=== PATIENT | male | born 1990 | race Caucasian/White ===

== ENCOUNTER 2021-05-29 11:32 | Inpatient (IN) | payer MEDICAID, OTHER ==
[~2021-05-29] VITALS: Ht 182.9 cm; Wt 120.9 kg
[2021-05-29 14:59] LABS: BASOPHILS % (AUTO) 0.8 % (0.0-2.0); EOSINOPHILS % (AUTO) 0.5 % (1.0-6.0); HEMOGLOBIN 15.2 g/dL (13.5-17.5); LYMPHOCYTES # (AUTO) 1.7 K/uL (1.0-4.8); LYMPHOCYTES % (AUTO) 15.9 % (22.0-44.0); MEAN CORPUSCULAR HEMOGLOBIN 28.9 pg (26.0-34.0); MEAN CORPUSCULAR HGB CONC 33.7 G/dL (31.0-37.0); MEAN CORPUSCULAR VOLUME 86 fL (80-100); MONOCYTES # (AUTO) 0.6 K/uL (0.1-1.0); MONOCYTES % (AUTO) 5.6 % (2.0-9.0); NEUTROPHILS # (AUTO) 8.3 K/uL (1.8-7.7); NEUTROPHILS % (AUTO) 77.2 % (40.0-70.0); PLATELET COUNT (AUTO) 221 K/uL (150-450); RED BLOOD CELL COUNT(AUTO) 5.24 MIL/uL (4.50-5.90); RED CELL DISTRIBUTION WIDTH 15.3 % (11.5-14.5)
[2021-05-29 15:50] LABS: ANION GAP 12 mmol/L (8-16); CALCIUM, TOTAL 8.6 mg/dL (8.8-10.5); CARBON DIOXIDE 25 mmol/L (22-29); CHLORIDE 105 mmol/L (98-107); CREATININE 0.77 mg/dL (0.60-1.30); GLOMERULAR FILTR. RATE CALC > 60 mL/min (>60); GLUCOSE,RANDOM 104 mg/dL (70-110); POTASSIUM 3.6 mmol/L (3.5-5.1); SODIUM SERUM 142 mmol/L (136-145); UREA NITROGEN, BLOOD 8 mg/dL (7-18)
[2021-05-29 15:56] LABS: ALANINE AMINOTRANSFERASE 41 U/L (12-78); ALBUMIN 3.8 g/dL (3.4-5.0); ALKALINE PHOSPHATASE 74 U/L (46-116); ASPARTATE AMINOTRANSFERASE 22 U/L (15-37); BILIRUBIN,TOTAL 0.2 mg/dL (0.1-1.0); TOTAL PROTEIN, SERUM 7.4 g/dL (6.4-8.2)
[2021-05-29 17:20] LABS: COVID AG,FIA SOURCE NASOPHARYNGEAL
[2021-05-29 18:30] VITALS: BP 153/97
[2021-05-29] MEDS: LORazepam 2 MG TABLET PO PRN (19:12)
[2021-05-29] MEDS: HALOPERIDOL 5 MG TABLET PO PRN (19:12)
[2021-05-29] MEDS ORDERED: ACETAMINOPHEN 325 MG TABLET PO PRN (19:45)
[2021-05-29] MEDS ORDERED: LOPERAMIDE HCL 2 MG CAPSULE PO PRN (19:45)
[2021-05-29] MEDS ORDERED: DOCUSATE SODIUM 100 MG CAPSULE PO PRN (19:45)
[2021-05-29] MEDS ORDERED: MAG HYDROX/AL HYDROX/SIMETH ES 30 ML SUSPENSION UDCUP PO PRN (19:45)
[2021-05-29] MEDS ORDERED: GuaiFENesin/D-METHORPHAN [SUGAR-FREE] 200-20MG/10 ML SYRUP UDCUP PO PRN (19:45)
[2021-05-29] MEDS ORDERED: CloNIDine HCL 0.1 MG TABLET PO PRN (19:45)
[2021-05-29] MEDS ORDERED: ALBUTEROL SULFATE HFA 90 MCG/PUFF 8 GM INHALER IH PRN (19:45)
[2021-05-29] MEDS ORDERED: NICOTINE 14 MG/24 HOUR PATCH TD PRN (19:45)
[2021-05-29] MEDS ORDERED: ONDANSETRON HCL 4 MG TABLET PO PRN (19:45)
[2021-05-29] MEDS ORDERED: MAGNESIUM HYDROXIDE SUSPENSION 30 ML UDCUP PO PRN (19:45)
[2021-05-29] MEDS ORDERED: PETROLATUM,WHITE 28 GM JELLY TP PRN (19:45)
[2021-05-30 09:42] LABS: BASOPHILS % (AUTO) 0.7 % (0.0-2.0); EOSINOPHILS % (AUTO) 1.6 % (1.0-6.0); HEMATOCRIT 46.6 % (41-53); HEMOGLOBIN 15.6 g/dL (13.5-17.5); LYMPHOCYTES % (AUTO) 20.3 % (22.0-44.0); MEAN CORPUSCULAR HEMOGLOBIN 29.3 pg (26.0-34.0); MEAN CORPUSCULAR HGB CONC 33.5 G/dL (31.0-37.0); MEAN CORPUSCULAR VOLUME 87 fL (80-100); MONOCYTES # (AUTO) 0.4 K/uL (0.1-1.0); MONOCYTES % (AUTO) 4.2 % (2.0-9.0); NEUTROPHILS # (AUTO) 7.1 K/uL (1.8-7.7); NEUTROPHILS % (AUTO) 73.2 % (40.0-70.0); PLATELET COUNT (AUTO) 229 K/uL (150-450); RED BLOOD CELL COUNT(AUTO) 5.33 MIL/uL (4.50-5.90); RED CELL DISTRIBUTION WIDTH 15.5 % (11.5-14.5)
[2021-05-30 09:43] LABS: HEMOGLOBIN A1C 5.4 % (3.8-5.6)
[2021-05-30 09:52] LABS: ALANINE AMINOTRANSFERASE 51 U/L (12-78); ALBUMIN 3.7 g/dL (3.4-5.0); ALKALINE PHOSPHATASE 77 U/L (46-116); ANION GAP 9 mmol/L (8-16); ASPARTATE AMINOTRANSFERASE 30 U/L (15-37); BILIRUBIN,TOTAL 0.4 mg/dL (0.1-1.0); CALCIUM, TOTAL 8.7 mg/dL (8.8-10.5); CARBON DIOXIDE 26 mmol/L (22-29); CHLORIDE 106 mmol/L (98-107); CREATININE 0.93 mg/dL (0.60-1.30); GLOMERULAR FILTR. RATE CALC > 60 mL/min (>60); GLUCOSE,RANDOM 124 mg/dL (70-110); POTASSIUM 3.6 mmol/L (3.5-5.1); SODIUM SERUM 141 mmol/L (136-145); TOTAL PROTEIN, SERUM 7.6 g/dL (6.4-8.2); UREA NITROGEN, BLOOD 11 mg/dL (7-18)
[2021-05-30 09:58] LABS: CHOL/HDL RATIO 3.3 (4.2-7.3); FREE T4 (FREE THYROXINE) 1.02 ng/dL (0.76-1.46); THYROID STIMULATING HORMONE 2.45 uIU/mL (0.36-3.74)
[2021-05-30] MEDS: OLANZapine 5 MG TABLET PO SCH ×2 (10:35→16:39)
[2021-05-30 16:00] VITALS: BP 129/74
[2021-05-30] MEDS: HALOPERIDOL 5 MG TABLET PO PRN (16:39)
[2021-05-31] MEDS: LORazepam 2 MG TABLET PO PRN ×3 (03:15→22:13)
[2021-05-31] MEDS: HALOPERIDOL 5 MG TABLET PO PRN (03:15)
[2021-05-31] MEDS: OLANZapine 5 MG TABLET PO SCH ×3 (09:00→16:17)
[2021-05-31] MEDS: IBUPROFEN 400 MG TABLET PO PRN (14:33)
[2021-05-31 16:54] VITALS: BP 152/90
[2021-05-31] MEDS: ZOLPIDEM TARTRATE 10 MG TABLET PO PRN (20:24)
[2021-06-01 08:00] VITALS: BP 156/98
[2021-06-01] MEDS: OLANZapine 5 MG TABLET PO SCH ×2 (08:45→16:02)
[2021-06-01] MEDS: IBUPROFEN 400 MG TABLET PO PRN (08:46)
[2021-06-01] MEDS: LORazepam 2 MG TABLET PO PRN ×2 (16:02→21:06)
[2021-06-01 16:48] VITALS: BP 146/89
[2021-06-01] MEDS: ZOLPIDEM TARTRATE 10 MG TABLET PO PRN (20:06)
[2021-06-02 08:38] VITALS: BP 153/96
[2021-06-02] MEDS: LORazepam 2 MG TABLET PO PRN (08:55)
[2021-06-02] MEDS: OLANZapine 5 MG TABLET PO SCH ×2 (08:56→16:17)
[2021-06-02] MEDS: IBUPROFEN 400 MG TABLET PO PRN (09:50)
[2021-06-02 16:07] VITALS: BP 158/85
[2021-06-02] MEDS: ZOLPIDEM TARTRATE 10 MG TABLET PO PRN (23:41)
[2021-06-03 04:10] VITALS: BP 150/86
[2021-06-03] MEDS: LORazepam 2 MG TABLET PO PRN (08:11)
[2021-06-03] MEDS: OLANZapine 5 MG TABLET PO SCH (08:11)
[2021-06-03 08:21] VITALS: BP 150/90
[2021-06-03] MEDS ORDERED: OLAN5TAB52 PO (13:28)
== END 2021-06-03 14:00 | disposition home or self-care (01) | DRG 750 ==
LOC: EMS 11:40 → 3EC 17:29 → 3EI 06-02 12:15
PROVIDERS: ADMIT Psychiatry & Neurology Child & Adolescent Psychiatry; ATTEND Psychiatry & Neurology Child & Adolescent Psychiatry
DX: F20.9 Schizophrenia, unspecified (principal); Z91.14 Patient's other noncompliance with medication regimen; E66.9 Obesity, unspecified; Z20.822 Contact with and (suspected) exposure to COVID-19; F19.10 Other psychoactive substance abuse, uncomplicated; R10.13 Epigastric pain; Z68.36 Body mass index [BMI] 36.0-36.9, adult
CPT/HCPCS: 80053; 80061; 83036; 84439; 84443; 85025; 99285; G0480

== ENCOUNTER 2022-11-16 19:58 | Emergency (ER) | payer MEDICAID, OTHER ==
[~2022-11-16] VITALS: Ht 180.3 cm; Wt 127.3 kg
[~2022-11-16 19:58] MED LIST: OLAN5TAB52 PO
[2022-11-16 20:01] VITALS: BP 155/89
== END 2022-11-16 23:47 | disposition left against medical advice (07) ==
LOC: EMS 19:58
DX: Z53.21 Procedure and treatment not carried out due to patient leaving prior to being seen by health care provider (principal)